=== PATIENT | female | born 1950 | race Caucasian/White ===

== ENCOUNTER → 2018-09-16 | Day surgery (SDC) | payer MEDICARE, OTHER ==
[~2018-09-16] MED LIST: Lactated Ringers 1,000 ML IV SCH; Propofol 200 MG/20 ML SDV IV ONE
--- NOTE | 2018-09-19 09:41 | OR ---
DATE OF OPERATION: 09/16/2018 PREOPERATIVE DIAGNOSIS: CRICOPHARYNGEAL DYSPHAGIA. POSTOPERATIVE DIAGNOSIS: CRICOPHARYNGEAL DYSPHAGIA. SURGEON: Martin Gonzalez MD PROCEDURE: EGD WITH BIOPSY X2, KARI. ANESTHESIA: TOMOGRAPHY TECHNOLOGIST. COMPLICATIONS: None. SPECIMEN: 1. Antral biopsy x2. 2. Antral KARI. FINDINGS: 1. Full-length esophagogastroduodenoscopy. 2. Antral gastritis, active and moderate, with multiple small erosions. RECOMMENDATIONS: I recommended appropriate proton pump therapy and KARI treatment, pending report. The patient has no obvious esophageal etiologies of her throat pain and dysphagia. INDICATIONS: The patient presented to [facility] for complaints of reflux and dysphagia. This appears to be more cricopharyngeal than anything, and [facility] sent her for EGD. DESCRIPTION OF PROCEDURE: The patient was prepped and draped, and placed in the left lateral decubitus position. A lubricated Olympus gastroscope was inserted over a bit, advanced to the cricopharyngeus area, and easily intubated in the esophagus with swallow. Esophageal lining appeared benign in its entire course. The Z-line was crisp and sharp at around 37 cm. No signs of any distal esophagitis, stricturing, ulceration, or Spencer changes. No spontaneous reflux was seen and no hiatal hernia. Scope was advanced into the stomach through the pylorus into the second portion of the duodenum. This and the duodenal bulb were benign. The scope was brought back into the stomach and retroflexed. The upper fundus and cardia appeared unremarkable. Upon straightening, the rest of the fundus was benign. The patient has active gastritis throughout most of the antrum with a few small focal erosions. The linear gastritis was seen extending all the way to the pylorus. Two [employer] representative biopsies were taken, and a CLOtest was taken for the affected portion of the antrum. Air was then suctioned from the stomach and the scope was removed without complication. JESÚS/WM /[id number]
== END ==
LOC: CC.SDS 11:11
PROVIDERS: ATTEND Family Medicine
DX: R13.13 Dysphagia, pharyngeal phase (principal); K29.50 Unspecified chronic gastritis without bleeding; K25.9 Gastric ulcer, unspecified as acute or chronic, without hemorrhage or perforation; I10 Essential (primary) hypertension; E78.5 Hyperlipidemia, unspecified; E03.9 Hypothyroidism, unspecified; K21.9 Gastro-esophageal reflux disease without esophagitis; M79.7 Fibromyalgia; F32.9 Major depressive disorder, single episode, unspecified; F41.9 Anxiety disorder, unspecified; Z79.890 Hormone replacement therapy; Z79.899 Other long term (current) drug therapy
CPT/HCPCS: 87081; J2704; J7120

== ENCOUNTER → 2019-05-05 | Day surgery (SDC) | payer MEDICARE, OTHER ==
--- NOTE | 2019-05-05 11:39 | OR ---
DATE OF OPERATION: 05/05/2019 PREOPERATIVE DIAGNOSIS: 1. CHRONIC GASTROESOPHAGEAL REFLUX DISEASE. 2. ALTERED BOWEL HABITS. POSTOPERATIVE DIAGNOSIS: 1. REFLUX ESOPHAGITIS. 2. SHORT SEGMENT BRANDON'S CHANGES. 3. CHRONIC APPEARING ANTRAL GASTRITIS. 4. PANDIVERTICULOSIS. 5. STATUS POST SIGMOIDECTOMY. SURGEON: Martin Gonzalez MD PROCEDURE: 1. ESOPHAGOGASTRODUODENOSCOPY WITH BIOPSIES X5. 2. FULL-LENGTH COLONOSCOPY WITH RANDOM BIOPSIES X3. ANESTHESIA: MAC. COMPLICATIONS: None. SPECIMEN: 1. Duodenal bulb biopsy x1. 2. Antral biopsy x2. 3. Distal esophageal biopsy x2. 4. Random colon biopsies x3. FINDINGS: 1. Full-length EGD. 2. Chronic mild antral gastritis. 3. Reflux esophagitis with erosion, distal esophagus. 4. Possible short segment Brandon's, distal esophagus. 5. Full-length colonoscopy. 6. Status post partial colectomy, sigmoid. 7. Pandiverticulosis. RECOMMENDATIONS: The patient should stop her Fosamax given her reflux esophagitis, consideration for switching her to Dexilant. She does have a recent laboratory diagnosis of celiac disease and duodenal bulb biopsy was done today. Regarding her colonoscopy, no signs of any polyps, did do random biopsies to rule out microscopic colitis. INDICATIONS: The patient has been having ongoing issues with reflux and heartburn. She has chronic altered bowel habits in the form of diarrhea, even maybe before her colectomy 6-7 years ago. She was sent for diagnostic upper and lower endoscopy. DESCRIPTION OF PROCEDURE: The patient was prepped and draped, placed in the left lateral decubitus position. A lubricated Olympus gastroscope was inserted over a bit, advanced to cricopharyngeus area, and easily intubated in the esophagus. The esophageal lining was benign until its most distal portion. No hiatal hernia was present. Spontaneous GERD was seen. There was some linear esophagitis with an erosion in the distal esophagus around 36 cm. Biopsy of that was taken. There was also one area which may be short segment Brandon's changes. Biopsy of that taken as well. No other lesions seen. The Z-line was around 39 cm. The scope was advanced into the stomach through the pylorus into the second portion of the duodenum. This and the duodenal bulb were benign. Duodenal bulb biopsy was obtained to evaluate for celiac. Scope was brought back into the stomach and retroflexed. Upper fundus and cardia were unremarkable. Antrum does show ongoing chronic gastritis, very mild, two biopsies were taken. Air was then suctioned from the stomach and the scope was removed without complication. A lubricated Olympus colonoscope was then inserted. Just past the rectal vault, the patient has her anastomotic site and those looked fine. The scope was advanced into the proximal sigmoid and advanced to the cecum without difficulty. The bowel prep was adequate. A lot of liquid stool was present. We were able to suction most of this, possible smaller lesions may have been missed. Upon withdrawal, throughout the entire length of the colon, I could find no signs of any polyps, mass, ulceration, or bleeding sites. No vascular abnormalities or signs of colitis. Did do random biopsy of the right, transverse, and sigmoid colon to evaluate for her diarrhea. There was canales diverticular disease, mild to moderate. No inflammatory changes. The rectal vault was benign. Retroflexion was difficult due to the shallowness of her vault and the close proximity of her anastomosis, and we did not retroflex. Visualization on direct withdrawal appeared benign. Air was suctioned, scope removed. The patient was stable in the recovery room. JESÚS/WM /[id number]
== END ==
LOC: CC.SDS 08:50
PROVIDERS: ATTEND Family Medicine
DX: K21.0 Gastro-esophageal reflux disease with esophagitis (principal); K29.50 Unspecified chronic gastritis without bleeding; K22.10 Ulcer of esophagus without bleeding; K57.30 Diverticulosis of large intestine without perforation or abscess without bleeding; N39.0 Urinary tract infection, site not specified; Z90.49 Acquired absence of other specified parts of digestive tract; Z79.899 Other long term (current) drug therapy
CPT/HCPCS: 00813; 43239; 45380; J2704; J7120